=== PATIENT | female | born 1980 | race Caucasian/White ===

== ENCOUNTER → 2022-07-08 | Outpatient (REF) | payer BC | LOC: M SFHCPLAZ 10:01 | PROVIDERS: ATTEND Family Medicine | DX: R53.82 Chronic fatigue, unspecified (principal) ==

== ENCOUNTER → 2022-07-30 | Outpatient (CLI) | payer BC | LOC: M WHC 08:12 | PROVIDERS: ATTEND Family Medicine | DX: Z12.31 Encounter for screening mammogram for malignant neoplasm of breast (principal) ==

== ENCOUNTER → 2022-08-19 | Outpatient (CLI) | payer BC | LOC: M WHC 09:20 | PROVIDERS: ATTEND Family Medicine | DX: R22.32 Localized swelling, mass and lump, left upper limb (principal) ==